=== PATIENT | female | born 1990 | race Caucasian/White ===

== ENCOUNTER 2021-11-01 19:46 | Emergency (ER) | payer OTHER, MEDICAID, SELFPAY ==
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
[2021-11-01 21:11] VITALS: BP 127/67; PULSE 87; RESP 18; TEMP 37.1; O2SAT 98; BMI 25.7
[2021-11-01 22:00] VITALS: BP 128/69; PULSE 82; RESP 18; TEMP 37.2; O2SAT 98
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
[2021-11-02 00:08] LABS: UPreg QC Valid YES; Urine Pregnancy NEGATIVE (NEGATIVE)
[2021-11-02 00:15] VITALS: BP 128/81; PULSE 79; RESP 14; TEMP 37.2; O2SAT 97
[2021-11-02] MEDS: Diphth,Pertus(ACell),Tet Adult 0.5 ML SYRINGE IM (00:47)
[2021-11-02] MEDS: Ketorolac Tromethamine 30 MG/ML VIAL 15 MG IM (00:47)
[2021-11-02] MEDS: Acetaminophen 325 MG TABLET 975 MG PO (00:47)
== END 2021-11-02 02:03 | disposition home or self-care (01) ==
PROVIDERS: Emergency Provider Student in an Organized Health Care Education/Training Program
DX: S16.1XXA Strain of muscle, fascia and tendon at neck level, initial encounter (principal); M62.830 Muscle spasm of back; S20.319A Abrasion of unspecified front wall of thorax, initial encounter; R07.89 Other chest pain; V43.52XA Car driver injured in collision with other type car in traffic accident, initial encounter; Y93.9 Activity, unspecified; Y92.410 Unspecified street and highway as the place of occurrence of the external cause; Y99.9 Unspecified external cause status
CPT/HCPCS: 70450; 70486; 71250; 72125; 81025; 90471; 90715; 96372; 99284; 99285; J1885

== ENCOUNTER 2024-02-15 09:53 | Emergency (ER) | payer MEDICAID, SELFPAY ==
--- NOTE | 2024-02-15 09:55 | ECG_ITS ---
Test Reason : cp Blood Pressure : / mmHG Vent. Rate : 105 BPM Atrial Rate : 105 BPM P-R Int : 114 ms QRS Dur : 092 ms QT Int : 338 ms P-R-T Axes : 072 039 037 degrees QTc Int : 446 ms Sinus tachycardia Otherwise normal ECG When compared with ECG of 17-AUG-2009 22:43, No significant change was found Referred By: Generic ED Physician Electronically Signed By:Home Rizvi
[2024-02-15 10:21] VITALS: BP 126/80; PULSE 105; RESP 17; TEMP 36.6; O2SAT 98; BMI 27.8
--- NOTE | 2024-02-15 10:50 | ED.ASTHMA ---
HPI - Asthma General Chief Complaint: Asthma Stated Complaint: asthma chest tightness Time Seen by Provider: 02/15/24 10:27 Source: patient Mode of arrival: ambulatory Limitations: no limitations History of Present Illness HPI Narrative: Patient is a 33-year-old female with history of asthma presenting to the emergency department with complaint of chest tightness and wheezing since Thursday. Also reports that she has had nasal congestion and cough also since Thursday. Denies fevers. Denies chest pain. Has been using her inhaler and nebulizer at home with little relief. complaint: wheezing Onset (ago): day(s) Severity: moderate Context: recent URI Associated symptoms: dry cough Treatments Prior to Arrival: inhaled bronchodilator Related Data Previous Rx's Medication Instructions Recorded benzonatate 100 mg capsule 100 mg PO TID PRN cough #20 caps 02/15/24 prednisone 20 mg tablet 40 mg (2 x 20 mg) PO DAILY #10 tabs 02/15/24 Allergies Allergy/AdvReac Type Severity Reaction Status Date / Time No Known Allergies Allergy Unverified 08/09/20 16:02 Review of Systems Review of Systems: As per HPI. Yes all other systems are reviewed and are negative Constitutional: Constitutional: Reports as per HPI [facility] Past Medical History Medical History Asthma Social History Social History Alcohol intake: unknown Patient Tobacco Use Status: Tobacco use Unknown Advance Directives: No Advance Directives Information Provided: No Physical Exam Vital Signs: Vital Signs: Last Vital Signs Temp 97.8 F 02/15/24 10:21 Pulse 104 H 02/15/24 11:10 Resp 22 H 02/15/24 11:10 BP 126/80 02/15/24 10:21 Pulse Ox 98 02/15/24 10:21 O2 Del Method Room Air 02/15/24 10:21 BMI result Body Mass Index 27.8 Vital signs have been reviewed and appear to be correct. Blood pressure normal. Heart rate l. Respiratory rate normal. Temperature normal. Oxygen saturation normal. Const: General: cooperative, healthy appearing and no acute distress Orientation/consciousness: oriented to person, oriented to place, oriented to time and patient oriented x3 Limitations: no limitations HEENT: Head: Yes normocephalic and Yes atraumatic Ears: external ears normal General nose exam: Normal external nose present Face and sinus: Yes face symmetric Mouth: oropharynx normal and moist mucous membranes Throat: Yes uvula midline Eyes: Pupils: Equal, round and reactive pupils present Neck: Neck: Yes normal visual inspection and Yes supple Resp: Effort & Inspection: normal respiratory effort, able to speak in complete sentences, no respiratory distress, no retractions, no tripod positioning and no use of accessory muscles Auscultation: wheezes expiratory wheezes, inspiratory wheezes and throughout Cardio: Rate: regular rate Rhythm: regular rhythm Heart sounds: S1 normal heart sound present and S2 normal heart sound present GI: Palpation (GI): Soft to palpation and nontender Auscultation: normoactive bowel sounds : General: Yes no CVA tenderness Back/Spine/Pelvis: Back: no CVA tenderness Skin: General skin exam: elasticity normal and turgor normal Neuro: General: oriented to person, oriented to place, oriented to time, patient oriented x3, moves all extremities, no focal motor deficits and CN's II-XI intact bilaterally Cranial nerves: Yes Equal, round and reactive pupils present Cognition (Neuro): normal cognition Extrem: General: Yes full ROM, Yes no pedal edema and Yes no calf tenderness Psych: Mental Status: mental status grossly normal Affect: normal affect Thought process: Normal thought process present Medications Administered Discontinued Medications Generic Name Dose Route Start Last Admin Trade Name Freq PRN Reason Stop Dose Admin Albuterol Sulfate 8 puff 02/15/24 11:01 02/15/24 11:04 Albuterol Sulfate 90 Mcg 8 Gm Inhaler INHALE 02/15/24 11:02 8 puff ONCE ONE Administration Medical Decision Making Medical Decision Making [facility] Narrative: Patient is a 33-year-old female with history of asthma presenting to the emergency department with complaint of chest tightness and wheezing since Thursday. On exam patient is awake, A+Ox3, slightly tachycardic, VS otherwise WNL, afebrile, normal neurological exam without focal deficits, physical exam findings as above. Given reported symptoms and physical exam findings, initial differential includes asthma exacerbation, viral illness, covid, flu, rsv. Viral swabs negative. EKG shows sinus tachycardia. Symptoms improved with breathing treatment given in the emergency department. Feel patient is stable for discharge home with course of prednisone and benzonatate. Instructed patient to follow-up with primary care provider. Return precautions discussed at bedside. Patient verbalized understanding of and agreement with plan. Differential Diagnosis Differential Diagnoses: The differential diagnosis associated with the presentation includes As per [facility]. Admission/Observation Consideration of admission/observation: Escalation of care including admission/observation considered Patient would have been admitted to the hospital had their work up had any findings where hospital admission was appropriate and their clinical presentation warranted hospital admission. Lab Data [facility] Lab Attestation statement: I reviewed the patient's lab results. As per [facility]. Labs: Lab Results 02/15/24 Range/Units 10:54 Influenza Type A (PCR) NEGATIVE (Negative) Influenza Type B (PCR) NEGATIVE (Negative) RSV RNA Qual (PCR) NEGATIVE (Negative) SARS-CoV-2 RNA (RT-PCR) NEGATIVE (Negative) External Record Review External record reviewed: Inpatient record, Office record and Outpatient record Prescription Management I considered prescription management with: Other Chronic Conditions Patient?s care impacted by: Other (asthma) Discharge Plan Discharge Clinical Impression: Asthma with acute exacerbation, Upper respiratory virus Patient Disposition: Home, Self-Care Instructions: Asthma (DC), Viral Syndrome (ED) Additional Instructions: You were evaluated in the emergency department today for wheezing and shortness of breath. Your symptoms are likely due to an asthma exacerbation caused by your recent viral respiratory infection. You were given a breathing treatment in the emergency department with improvement. You are being prescribed a short course of steroids. You are also being prescribed cough medication. Please continue to use your inhaler and nebulizer as prescribed. Return to the emergency department if you develop worsening shortness of breath or difficulty breathing, chest pain, fever any other concerning symptoms. Follow-up with your primary care provider this week. Prescriptions: New prednisone 20 mg tablet 40 mg PO DAILY Qty: 10 0RF benzonatate 100 mg capsule 100 mg PO TID PRN (Reason: cough) Qty: 20 0RF
[2024-02-15] MEDS: Albuterol Sulfate 90 MCG 8 GM INHALER 8 PUFF INHALE (11:04)
[2024-02-15 11:10] VITALS: PULSE 104; RESP 22; O2SAT 95
[2024-02-15 11:52] LABS: Influenza A PCR NEGATIVE (Negative); Influenza B PCR NEGATIVE (Negative); Resp Syncy Virus RNA Qual PCR NEGATIVE (Negative); SARS COV2 PCR INHOUSE NEGATIVE (Negative)
[2024-02-15 14:32] VITALS: BP 111/82; PULSE 93; RESP 20; TEMP 36.9; O2SAT 96
== END 2024-02-15 14:33 | disposition home or self-care (01) ==
PROVIDERS: Registered Nurse Emergency; Emergency Provider Emergency Medicine
DX: J45.901 Unspecified asthma with (acute) exacerbation (principal); J06.9 Acute upper respiratory infection, unspecified; Z11.52 Encounter for screening for COVID-19; Z20.828 Contact with and (suspected) exposure to other viral communicable diseases
CPT/HCPCS: 0241U; 93005; 94640; 94664; 99284

== ENCOUNTER → 2024-02-15 09:55 | Outpatient (BNV) | payer MEDICAID, SELFPAY | PROVIDERS: Emergency Provider Emergency Medicine; Visit Provider Internal Medicine Cardiovascular Disease | DX: R07.9 Chest pain, unspecified (principal) | CPT/HCPCS: 93010 ==

== ENCOUNTER 2024-07-31 20:35 | Emergency (ER) | payer MEDICAID, SELFPAY ==
[2024-07-31 20:38] VITALS: BP 122/47; PULSE 97; RESP 14; TEMP 36.3; O2SAT 97; BMI 29.1
--- NOTE | 2024-07-31 20:39 | ED.GENADULT ---
HPI - General Adult General Chief complaint: Eye Problems Stated complaint: swollen itchy eyes Time Seen by Provider: 07/31/24 21:23 Source: patient Mode of arrival: ambulatory Limitations: no limitations History of Present Illness ED Provider: Dr. Sonia Jay HPI narrative: patient comes to the emergency room complaining of swelling of both eyes. Patient states that it started with 1 eye in the morning, patient took medication for seasonal allergies, instead hoping to decrease the swelling and the itching is, it increased and spread to the other eye. Patient complaining of full body itchiness. Patient denies chest pain or shortness of breath. No oropharyngeal involvement. Related Data Previous Rx's ?Medication ?Instructions ?Recorded benzonatate 100 mg capsule 100 mg PO TID PRN cough #20 caps 02/15/24 prednisone 20 mg tablet 40 mg (2 x 20 mg) PO DAILY #10 tabs 02/15/24 hydroxyzine HCl 25 mg tablet 25 mg PO TID PRN itching #14 tabs 08/01/24 prednisone 50 mg tablet 50 mg PO DAILY #3 tabs 08/01/24 Allergies Allergy/AdvReac Type Severity Reaction Status Date / Time No Known Allergies Allergy Verified 07/31/24 20:39 Review of Systems Review of Systems: Constitutional : No Weight loss, No Fever, No Chills, No Night Sweats, No Fatigue, No Malaise ENT/Mouth : No Hearing loss, No Ear Pain, No Nasal Congestion, No Sinus Pain, No Hoarseness, No sore throat, No Rhinorrhea, No Swallowing Difficulty Eyes: No Eye Pain, No Swelling, No Redness, No Foreign Body, No Discharge, No Vision Changes Cardiovascular : No Chest Pain, No SOB, No Dyspnea on Exertion, No Orthopnea, No Edema, No Palpitations Respiratory : No Cough, No Sputum, No Wheezing, No Smoke Exposure, No Dyspnea Gastrointestinal : No Nausea, No Vomiting, No Diarrhea, No Constipation, No abdominal Pain, No Hematochezia, No Melena Genitourinary : no irregular bleeding, No Dysuria, No Urinary Frequency, No Hematuria, No Urinary Incontinence, No Urgency, No Flank Pain, No Urinary Flow Changes, No Hesitancy Musculoskeletal : No joint pain, No Myalgias, No Joint Swelling Skin : Complaining of facial hives Neuro : No Weakness, No Numbness, No Paresthesias, No Loss of Consciousness, No Dizziness, No Headache Psych : No Anxiety/Panic, No Depression, No SI/HI/AH/VH, No Social Issues, Heme/Lymph: No Bruising, No Bleeding,No Lymphadenopathy Endocrine : No Polyuria, No Polydipsia, No Temperature Intolerance [facility] Past Medical History Medical History Asthma Social History Social History Alcohol intake: unknown Patient Tobacco Use Status: Tobacco use Unknown Advance Directives: No Advance Directives Information Provided: No Do you have a plan to hurt others: No Plan Physical Exam ED Vital Signs: Vital Signs - 24 hr 07/31/24 20:38 07/31/24 22:09 Temperature 97.3 F 97.1 F Pulse Rate 97 85 Respiratory Rate 14 16 Blood Pressure 122/47 L 122/74 Pulse Oximetry 97 98 Oxygen Delivery Method Room Air Room Air BMI result Body Mass Index 29.1 Const Other: Appearance: Alert. Oriented X3. No acute distress. Eyes: Pupils equal, round and reactive to light. ENT: Pharynx normal. Neck: Normal inspection. Neck supple. No lymph nodes noted. No crepitus CVS: Normal heart rate and rhythm. Pulses normal. Normal S1 and S2 Respiratory: No respiratory distress. Breath sounds normal. No Wheezing. No rales Abdomen: Soft and nontender. No rigidity. No distention. Skin: head in the face Extremities: No lower extremity edema. No Lacerations. No Rash Neuro: Oriented X 3. No motor deficit. No sensory deficit. Moving all extremities. No slurred speech. CN 2 through 12 grossly intact Psych: calm, cooperative, normal affect Course Course Course Narrative: RME performed by Nikcie Garcia PA-C. Patient is a 33 year old assigned female at presenting to the emergency department with bilateral itching and swollen eyes. Patient states this started this morning and she is concerned that is an allergic reaction to something. Detailed physical exam and review of systems are deferred to the warehouse administrator. Labs ordered. Patient placed back in the waiting room pending room availability and results. Medications Administered Generic Name Dose Route Start Last Admin Trade Name Freq PRN Reason Stop Dose Admin Sodium Chloride 1,000 mls @ 999 mls/hr 07/31/24 23:19 07/31/24 23:29 Ns IVCONT 08/01/24 00:19 999 mls/hr .Q1H1M ONE Administration Discontinued Medications Generic Name Dose Route Start Last Admin Trade Name Gareth PRTriston Reason Stop Dose Admin Diphenhydramine HCl 50 mg 07/31/24 21:41 07/31/24 21:54 Diphenhydramine Hcl 50 Mg/Ml Vial IVPUSH 07/31/24 21:42 50 mg ONCE ONE Administration Famotidine 20 mg 07/31/24 21:41 07/31/24 21:54 Famotidine/Pf 20 Mg/2 Ml Vial IVPUSH 07/31/24 21:42 20 mg ONCE ONE Administration Famotidine 20 mg 07/31/24 23:19 07/31/24 23:30 Famotidine/Pf 20 Mg/2 Ml Vial IVPUSH 07/31/24 23:20 20 mg ONCE ONE Administration Hydroxyzine HCl 50 mg 07/31/24 23:20 07/31/24 23:30 Hydroxyzine Hcl 50 Mg Tablet PO 07/31/24 23:21 50 mg ONCE ONE Administration Methylprednisolone Sodium Succinate 125 mg 07/31/24 21:41 07/31/24 21:54 Methylprednisolone Sod Succ 125 Mg/2 Ml Vial IVPUSH 07/31/24 21:42 125 mg ONCE ONE Administration Methylprednisolone Sodium Succinate 125 mg 07/31/24 23:19 07/31/24 23:30 Methylprednisolone Sod Succ 125 Mg/2 Ml Vial IVPUSH 07/31/24 23:20 125 mg ONCE ONE Administration Medical Decision Making Medical Decision Making [facility] Narrative: - patient was given IV Solu-Medrol, Pepcid and Benadryl. Patient states that the 1st round of treatment did not work, a 2nd dose of Solu-Medrol and Pepcid was given to the patient. Also given p.o. hydroxyzine. - After this dose of medications, patient states that she feels much better. She still has a bit of swelling under the eyes, no oropharyngeal edema, no wheezing, no hives anywhere else in itching this has resolved Differential Diagnosis Differential Diagnoses: The differential diagnosis associated with the presentation includes ( allergic reaction versus eczema versus seasonal allergies) Admission/Observation Consideration of admission/observation: Escalation of care including admission/observation considered ( given patient's duration of symptoms and response to treatment, observation was considered) Lab Data MDM Lab Attestation statement: I reviewed the patient's lab results. 07/31/24 20:47 07/31/24 20:47 Labs: Lab Results 07/31/24 Range/Units 20:47 WBC 9.6 (4.8-10.8) X10*3/uL RBC 4.25 (4.20-5.50) X10*6/uL Hgb 12.1 (12.0-16.0) g/dl Hct 36.8 L (37.0-47.0) % MCV 86.6 (80.0-98.0) fL MCH 28.5 (27.0-33.0) pg MCHC 32.9 (31.0-35.0) g/dl RDW 16.3 H (11.0-16.0) % Plt Count 296 (160-400) X10*3/uL MPV 10.6 (9.4-12.3) fL Immature Gran % (Auto) 0.4 (0.0-0.4) % Neut % (Auto) 54.6 (45-73) % Lymph % (Auto) 29.9 (20-40) % [place] % (Auto) 7.0 (2-11) % Eos % (Auto) 7.2 H (0-4) % Baso % (Auto) 0.9 (0-2) % Lymph # (Auto) 2.9 (1.2-4.9) X10*3/uL [place] # (Auto) 0.7 (0.1-1.2) X10*3/uL Eos # (Auto) 0.7 H (0.0-0.4) X10*3/uL Baso # (Auto) 0.1 (0.0-0.2) X10*3/uL Abs Immat Gran (auto) 0.04 H (0.00-0.03) X10*3/uL Absolute Neuts (auto) 5.3 (2.0-8.3) x10*3/uL Absolute Nucleated RBC 0.000 (0.0-0.012) X10*3/uL Nucleated RBC % (auto) 0.0 (0.0-0.2) /100WBC ESR 5 (0-20) MM/HR Sodium 142 (135-145) mmol/L Potassium 3.9 (3.3-5.1) mmol/L Chloride 108 (96-108) mmol/L Carbon Dioxide 26 (22-29) mmol/L Anion Gap 12 (12-20) BUN 10 (9-16) mg/dL Creatinine 0.73 (0.5-1.4) mg/dL Estim Creat Clear Calc 105.9 Estimated GFR > 60 Random Glucose 95 (60-115) mg/dL Calcium 8.8 (8.4-10.2) mg/dL Magnesium 2.0 (1.6-2.6) mg/dL Total Bilirubin 0.2 (0.0-1.0) mg/dL AST 15 (5-31) U/L ALT 17 (0-31) U/L Alkaline Phosphatase 64 (39-117) U/L C-Reactive Protein 0.28 (< or = 0.50) mg/dL Total Protein 6.4 L (6.5-8.0) g/dL Albumin 3.7 (3.5-5.0) g/dL Critical Care Time Critical Care Time Critical Care Time: Yes Total Critical Care Time: 35 Attestation: I have personally provided critical care time. Time includes review of lab data, radiology results, discussion with consultants, and monitoring for potential decompensation. Intervention performed as documented. Discharge Plan Discharge Clinical Impression: Allergic reaction Patient Disposition: Home, Self-Care Instructions: General Allergic Reaction (ED), Allergy Testing (ED) Additional Instructions: Please follow-up with your primary care physician tomorrow. If you have any worsening or new symptoms, please return to the emergency room or call 911 Prescriptions: New prednisone 50 mg tablet 50 mg PO DAILY Qty: 3 0RF hydroxyzine HCl 25 mg tablet 25 mg PO TID PRN (Reason: itching) Qty: 14 0RF No Action prednisone 20 mg tablet 40 mg PO DAILY Qty: 10 0RF benzonatate 100 mg capsule 100 mg PO TID PRN (Reason: cough) Qty: 20 0RF Print Language: Czech
[2024-07-31 20:52] LABS: MANUAL DIFF FLAG NO
[2024-07-31 20:55] LABS: Basophils Absolute Auto 0.1 X10*3/uL (0.0-0.2); Basophils Percent Auto 0.9 % (0-2); Eosinophils Absolute Auto 0.7 X10*3/uL (0.0-0.4); Eosinophils Percent Auto 7.2 % (0-4); Hematocrit 36.8 % (37.0-47.0); Hemoglobin 12.1 g/dl (12.0-16.0); Imm Gran Abs Auto 0.04 X10*3/uL (0.00-0.03); Imm Gran Pct Auto 0.4 % (0.0-0.4); Lymphocytes Absolute Auto 2.9 X10*3/uL (1.2-4.9); Lymphocytes Percent Auto 29.9 % (20-40); Mean Corpuscular HGB Conc 32.9 g/dl (31.0-35.0); Mean Corpuscular Hemoglobin 28.5 pg (27.0-33.0); Mean Corpuscular Volume 86.6 fL (80.0-98.0); Mean Platelet Volume 10.6 fL (9.4-12.3); Monocytes Absolute Auto 0.7 X10*3/uL (0.1-1.2); Neutrophils Absolute Auto 5.3 x10*3/uL (2.0-8.3); Neutrophils Percent Auto 54.6 % (45-73); Platelet Count 296 X10*3/uL (160-400); Red Blood Count 4.25 X10*6/uL (4.20-5.50); Red Cell Distribution Width 16.3 % (11.0-16.0); White Blood Count 9.6 X10*3/uL (4.8-10.8)
[2024-07-31 21:09] LABS: Alanine Aminotransferase 17 U/L (0-31); Albumin Level 3.7 g/dL (3.5-5.0); Alkaline Phosphatase 64 U/L (39-117); Anion Gap 12 (12-20); Aspartate Amino Transferase 15 U/L (5-31); Bilirubin Total 0.2 mg/dL (0.0-1.0); Blood Urea Nitrogen 10 mg/dL (9-16); C Reactive Protein 0.28 mg/dL (< or = 0.50); Calcium 8.8 mg/dL (8.4-10.2); Carbon Dioxide 26 mmol/L (22-29); Chloride 108 mmol/L (96-108); Creatinine Clr Calc Pharmacy 105.9; Estimated Glomerular Filt Rate > 60; Glucose Random 95 mg/dL (60-115); Potassium 3.9 mmol/L (3.3-5.1); Sodium 142 mmol/L (135-145); Total Protein 6.4 g/dL (6.5-8.0)
[2024-07-31 21:36] LABS: Erythrocyte Sedimentation Rate 5 MM/HR (0-20)
[2024-07-31] MEDS: diphenhydrAMINE HCL 50 MG/ML VIAL IVPUSH (21:54)
[2024-07-31] MEDS: methylPREDNISolone Sod Succ 125 MG/2 ML VIAL IVPUSH ×2 (21:54→23:30)
[2024-07-31] MEDS: Famotidine/PF 20 MG/2 ML VIAL IVPUSH ×2 (21:54→23:30)
[2024-07-31 22:09] VITALS: BP 122/74; PULSE 85; RESP 16; TEMP 36.2; O2SAT 98
[2024-07-31] MEDS: 0.9 % Sodium Chloride 1,000 ML 999 ML IVCONT (23:29)
[2024-07-31] MEDS: hydrOXYzine HCL 50 MG TABLET PO (23:30)
[2024-08-01 01:12] VITALS: BP 112/68; PULSE 72; RESP 16; TEMP 36.7; O2SAT 98
== END 2024-08-01 01:15 | disposition home or self-care (01) ==
PROVIDERS: Physician Assistant Medical; Emergency Provider Emergency Medicine
DX: L29.9 Pruritus, unspecified (principal); H01.8 Other specified inflammations of eyelid; R06.02 Shortness of breath; Z79.899 Other long term (current) drug therapy
CPT/HCPCS: 36415; 80053; 83735; 85025; 85652; 86140; 96361; 96374; 96375; 96376; 99284; J1200; J2919

== ENCOUNTER 2025-01-22 17:00 | Emergency (ER) | payer MEDICAID, SELFPAY ==
--- NOTE | ~2025-01-22 | XR_ITS ---
CLINICAL HISTORY: Chest pain Single view of the chest. COMPARISON: None FINDINGS: Normal heart and mediastinal contours. No consolidation. No pleural effusion or pneumothorax. No fracture identified. IMPRESSION: 1. No acute cardiopulmonary abnormality. This document has been electronically signed by: Christopher Gomez MD on 01/22/2025 18:39:07
--- NOTE | 2025-01-22 17:01 | ECG_ITS ---
Test Reason : CHEST PAIN Blood Pressure : */* mmHG Vent. Rate : 92 BPM Atrial Rate : 92 BPM P-R Int : 112 ms QRS Dur : 98 ms QT Int : 356 ms P-R-T Axes : 57 34 51 degrees QTcB Int : 440 ms Normal sinus rhythm Normal ECG When compared with ECG of 15-Feb-2024 10:02, No significant change was found Referred By: Generic ED Physician Electronically Signed By: PAIGE BHATT MD
[2025-01-22 17:08] VITALS: BP 150/89; PULSE 93; RESP 16; TEMP 36.7; O2SAT 98; BMI 28.2
--- NOTE | 2025-01-22 17:12 | ED_ITS ---
HPI - General Adult General Chief complaint: Chest Pain Stated complaint: chest pain/sob/left arm feels numb Time Seen by Provider: 01/22/25 18:40 Source: patient Mode of arrival: ambulatory Limitations: no limitations History of Present Illness ED Provider: Pollo Gutierrez HPI narrative: 34 yold female with pmh of asthma presents to the ED for SOB, wheezing, and chest pain since last night with coughing. patient states under stress because daughter tried to comittt suicide or in crisis. Related Data Previous Rx's ?Medication ?Instructions ?Recorded benzonatate 100 mg capsule 100 mg PO TID PRN cough #20 caps 02/15/24 prednisone 20 mg tablet 40 mg (2 x 20 mg) PO DAILY #10 tabs 02/15/24 hydroxyzine HCl 25 mg tablet 25 mg PO TID PRN itching #14 tabs 08/01/24 prednisone 50 mg tablet 50 mg PO DAILY #3 tabs 08/01/24 oseltamivir 75 mg capsule (Tamiflu) 75 mg PO BID 5 days #10 caps 01/22/25 prednisone 20 mg tablet 40 mg (2 x 20 mg) PO DAILY 5 days 01/22/25 #10 tabs Allergies Allergy/AdvReac Type Severity Reaction Status Date / Time No Known Allergies Allergy Verified 01/22/25 17:12 Review of Systems 2 Review of Systems: Chest pain, coughing, SOB, wheezing Yes all other systems are reviewed and are negative [facility] Past Medical History Medical History Asthma Social History Social History Alcohol intake: unknown Patient Tobacco Use Status: Tobacco use Unknown Advance Directives: No Advance Directives Information Provided: No Physical Exam ED Vital Signs: Vital Signs - 24 hr 01/22/25 17:08 01/22/25 18:36 Temperature 98.1 F Pulse Rate 93 107 H Respiratory Rate 16 18 Blood Pressure 150/89 H Pulse Oximetry 98 Oxygen Delivery Method Room Air BMI result Body Mass Index 28.2 Const General: cooperative, healthy appearing, comfortable, no acute distress, well developed, alert, awake and Physically active Orientation/consciousness: patient oriented x3 HENMT Head: Yes normal to inspection, Yes No palpable skull fracture present, Yes normocephalic and Yes atraumatic Ears: hearing grossly normal bilaterally, external ears normal, TM's normal bilaterally, TM normal on the right, TM normal on the left, EAC's normal, mastoids normal and no periauricular adenopathy Throat: Yes posterior oropharynx normal, Yes tonsils normal and Yes uvula midline Eyes General: appearance normal, both eyes and all related structures Neck Neck: Yes normal visual inspection, Yes full ROM, Yes no lymphadenopathy, Yes no meningeal signs, Yes trachea midline, Yes supple, No anterior neck swelling and No tender Chest Chest palpation & inspection: normal inspection of the chest and normal palpation of entire chest wall Resp Effort & Inspection: normal respiratory effort and able to speak in complete sentences Auscultation: wheezes expiratory wheezes Cardio Jugular venous distension: no JVD Heart sounds: S1 normal heart sound present and S2 normal heart sound present GI Inspection: Yes normal to inspection Palpation (GI): Soft to palpation, not firm, nontender, no guarding and not rigid General: Yes no CVA tenderness Back/Spine/Pelvis Back: no CVA tenderness and No back tenderness Skin General skin exam: no rashes or lesions noted, elasticity normal and turgor normal Neuro General: patient oriented x3, gait normal, tone normal, moves all extremities, Normal light touch and pain sensation, no meningeal signs, no focal motor deficits, CN's II-XI intact bilaterally and normal sensation to monofilament Extrem General: Yes normal to inspection, Yes full ROM and Yes capillary refill normal Psych Appearance: grossly normal, well kempt and not disheveled Course Course Course Narrative: RME; 34 yold female presents to the ED left-sided chest pain with numbness/tingling of upper extremity for a couple of days. Patient states under lot of stress due to daughter recently trying to commit suicide in his in crisis. Patient states using a nebulizer with no relief. Patient denies any recent long travel recent surgery or control use. Positive for lung wheezing EKG labs chest x-ray ordered SARs. Medications Administered Discontinued Medications Generic Name Dose Route Start Last Admin Trade Name Freq PRN Reason Stop Dose Admin Albuterol Sulfate 2.5 mg/ 0 mg 01/22/25 18:36 01/22/25 18:39 Albuterol/Ipratropium 3 ml INHALE 01/22/25 18:37 5 dose ONCE ONE Administration Oseltamivir Phosphate 75 mg 01/22/25 19:06 01/22/25 19:45 Oseltamivir Phosphate 75 Mg Capsule PO 01/22/25 19:07 75 mg ONCE ONE Administration Prednisone 40 mg 01/22/25 19:06 01/22/25 19:46 Prednisone 20 Mg Tablet PO 01/22/25 19:07 40 mg ONCE ONE Administration Medical Decision Making Medical Decision Making [facility] Narrative: 34-year-old female presents to ED for chest pain coughing shortness of breath since last night with wheezing brain patient denies any leg swelling calf pain recent long travel recent surgery. Patient denies any estrogen use. Patient's troponin BNP negative ever having chest pain since yesterday. Patient is positive for flu. Patient gave me ED bronchodilator albuterol, prednisone and Tamiflu. Patient explained worrisome signs and informed to return to the ED immediately. Not susepcting AL, PE, CHF, myocarditits, pericarditits, pneumonia, or any other concerning symptoms. Differential Diagnosis Differential Diagnoses: The differential diagnosis associated with the presentation includes (Pneumonia, COVID, influenza, RSV) Lab Data [facility] Lab Attestation statement: I reviewed the patient's lab results. 01/22/25 17:18 01/22/25 17:18 Labs: Lab Results 01/22/25 Range/Units 17:18 WBC 5.1 (4.8-10.8) X10*3/uL RBC 4.60 (4.20-5.50) X10*6/uL Hgb 12.9 (12.0-16.0) g/dl Hct 39.3 (37.0-47.0) % MCV 85.4 (80.0-98.0) fL MCH 28.0 (27.0-33.0) pg MCHC 32.8 (31.0-35.0) g/dl RDW 13.7 (11.0-16.0) % Plt Count 366 (160-400) X10*3/uL MPV 10.0 (9.4-12.3) fL Immature Gran % (Auto) 0.8 H (0.0-0.4) % Neut % (Auto) 53.6 (45-73) % Lymph % (Auto) 22.8 (20-40) % [place] % (Auto) 15.0 H (2-11) % Eos % (Auto) 6.4 H (0-4) % Baso % (Auto) 1.4 (0-2) % Lymph # (Auto) 1.2 (1.2-4.9) X10*3/uL [place] # (Auto) 0.8 (0.1-1.2) X10*3/uL Eos # (Auto) 0.3 (0.0-0.4) X10*3/uL Baso # (Auto) 0.1 (0.0-0.2) X10*3/uL Abs Immat Gran (auto) 0.04 H (0.00-0.03) X10*3/uL Absolute Neuts (auto) 2.8 (2.0-8.3) x10*3/uL Absolute Nucleated RBC 0.000 (0.0-0.012) X10*3/uL Nucleated RBC % (auto) 0.0 (0.0-0.2) /100WBC PT 12.6 H (10.9-12.4) SEC INR 1.1 (0.9-1.1) APTT 30.7 (26.0-36.8) SEC Sodium 140 (135-145) mmol/L Potassium 3.6 (3.3-5.1) mmol/L Chloride 107 (96-108) mmol/L Carbon Dioxide 23 (22-29) mmol/L Anion Gap 14 (12-20) BUN 8 L (9-16) mg/dL Creatinine 0.74 (0.5-1.4) mg/dL Estim Creat Clear Calc 102.0 Estimated GFR > 60 Random Glucose 96 (60-115) mg/dL Calcium 8.8 (8.4-10.2) mg/dL Total Bilirubin 0.2 (0.0-1.0) mg/dL AST 23 (5-31) U/L ALT 17 (0-31) U/L Alkaline Phosphatase 86 (39-117) U/L Troponin I High Sens < 2.7 (<3.5-17.0) ng/L B-Natriuretic Peptide 14 (<100) pg/mL Total Protein 7.6 (6.5-8.0) g/dL Albumin 3.9 (3.5-5.0) g/dL Beta HCG, Quant < 2 mIU/mL Influenza Type A (PCR) POSITIVE A (Negative) Influenza Type B (PCR) NEGATIVE (Negative) RSV RNA Qual (PCR) NEGATIVE (Negative) SARS-CoV-2 RNA (RT-PCR) NEGATIVE (Negative) Independent Interpretation I performed an independent interpretation of an: EKG (Normal sinus rythm) and Plain X-Ray Radiology Impression Discussion of test interpretation with radiology: I have reviewed the radiologist's reading. Independent Historian Clinical information obtained from an independent historian. History obtained from or confirmed by: Other (patient) Discharge Plan Discharge Clinical Impression: Influenza A Patient Disposition: Home, Self-Care Instructions: Influenza (ED) Additional Instructions: Recommend follow up with POC. return to the ED immeidatley for any chest pain, fever, chills, leg swelling, calf pain, weakness, dizziness, or any other concernin symptoms. Your labs, EkG, chest xray was reassuring. Continue using albuterol inhaler as needed. Prescriptions: New prednisone 20 mg tablet 40 mg PO DAILY 5 Days Qty: 10 0RF oseltamivir [Tamiflu] 75 mg capsule 75 mg PO BID 5 Days Qty: 10 0RF No Action prednisone 20 mg tablet 40 mg PO DAILY Qty: 10 0RF benzonatate 100 mg capsule 100 mg PO TID PRN (Reason: cough) Qty: 20 0RF prednisone 50 mg tablet 50 mg PO DAILY Qty: 3 0RF hydroxyzine HCl 25 mg tablet 25 mg PO TID PRN (Reason: itching) Qty: 14 0RF Stand Alone Forms: Work/School Release Interventions: ED Discharge Assessment Last Done: 01/22/25 19:47 Discharge Date/Time: 01/22/25 19:48 Print Language: [place]
[2025-01-22 17:26] LABS: MANUAL DIFF FLAG NO
[2025-01-22 17:28] LABS: Basophils Absolute Auto 0.1 X10*3/uL (0.0-0.2); Basophils Percent Auto 1.4 % (0-2); Eosinophils Absolute Auto 0.3 X10*3/uL (0.0-0.4); Eosinophils Percent Auto 6.4 % (0-4); Hematocrit 39.3 % (37.0-47.0); Hemoglobin 12.9 g/dl (12.0-16.0); Imm Gran Abs Auto 0.04 X10*3/uL (0.00-0.03); Imm Gran Pct Auto 0.8 % (0.0-0.4); Lymphocytes Absolute Auto 1.2 X10*3/uL (1.2-4.9); Lymphocytes Percent Auto 22.8 % (20-40); Mean Corpuscular HGB Conc 32.8 g/dl (31.0-35.0); Mean Corpuscular Volume 85.4 fL (80.0-98.0); Monocytes Absolute Auto 0.8 X10*3/uL (0.1-1.2); Neutrophils Absolute Auto 2.8 x10*3/uL (2.0-8.3); Neutrophils Percent Auto 53.6 % (45-73); Platelet Count 366 X10*3/uL (160-400); Red Cell Distribution Width 13.7 % (11.0-16.0); White Blood Count 5.1 X10*3/uL (4.8-10.8)
[2025-01-22 17:40] LABS: INTERNATIONAL NORM RATIO 1.1 (0.9-1.1); Prothrombin Time 12.6 SEC (10.9-12.4)
[2025-01-22 17:42] LABS: Partial Thromboplastin Time 30.7 SEC (26.0-36.8)
[2025-01-22 17:48] LABS: B Type Natriuretic Peptide 14 pg/mL (<100)
[2025-01-22 17:50] LABS: Alanine Aminotransferase 17 U/L (0-31); Albumin Level 3.9 g/dL (3.5-5.0); Alkaline Phosphatase 86 U/L (39-117); Anion Gap 14 (12-20); Aspartate Amino Transferase 23 U/L (5-31); Bilirubin Total 0.2 mg/dL (0.0-1.0); Blood Urea Nitrogen 8 mg/dL (9-16); Calcium 8.8 mg/dL (8.4-10.2); Carbon Dioxide 23 mmol/L (22-29); Chloride 107 mmol/L (96-108); Estimated Glomerular Filt Rate > 60; Glucose Random 96 mg/dL (60-115); HCG Quantitative < 2 mIU/mL; Potassium 3.6 mmol/L (3.3-5.1); Sodium 140 mmol/L (135-145); Total Protein 7.6 g/dL (6.5-8.0); Troponin-I High Sensitivity < 2.7 ng/L (<3.5-17.0)
[2025-01-22 18:07] LABS: Influenza A PCR POSITIVE (Negative); Influenza B PCR NEGATIVE (Negative); Resp Syncy Virus RNA Qual PCR NEGATIVE (Negative); SARS COV2 PCR INHOUSE NEGATIVE (Negative)
[2025-01-22 18:36] VITALS: PULSE 107; RESP 18; O2SAT 98
[2025-01-22] MEDS: Albuterol Sulfate 2.5 MG, Albuterol/Iprat 2.5/0.5MG 3 ML 3 ML INHALE (18:39)
[2025-01-22 19:24] VITALS: BP 148/88; PULSE 96; RESP 18; TEMP 36.8; O2SAT 98
[2025-01-22] MEDS: Oseltamivir Phosphate 75 MG CAPSULE PO (19:45)
[2025-01-22] MEDS: predniSONE 20 MG TABLET 40 MG PO (19:46)
[2025-01-22 19:47] VITALS: BP 148/88; PULSE 96; RESP 18; TEMP 36.8; O2SAT 98
== END 2025-01-22 19:48 | disposition home or self-care (01) ==
PROVIDERS: Physician Assistant; Emergency Provider Emergency Medicine
DX: J10.1 Influenza due to other identified influenza virus with other respiratory manifestations (principal); R07.89 Other chest pain; R06.02 Shortness of breath; M79.602 Pain in left arm; R05.9 Cough, unspecified; F43.9 Reaction to severe stress, unspecified; Z03.818 Encounter for observation for suspected exposure to other biological agents ruled out; Z79.899 Other long term (current) drug therapy
CPT/HCPCS: 0241U; 36415; 71045; 80053; 83880; 84484; 84702; 85025; 85610; 85730; 93005; 94640; 99284

== ENCOUNTER → 2025-01-22 17:01 | Outpatient (BNV) | payer MEDICAID, SELFPAY | PROVIDERS: Emergency Provider Emergency Medicine; Visit Provider Internal Medicine Cardiovascular Disease | DX: R07.9 Chest pain, unspecified (principal) | CPT/HCPCS: 93010 ==

== ENCOUNTER → 2025-01-22 17:11 | Outpatient (BNV) | payer MEDICAID, SELFPAY | PROVIDERS: Emergency Provider Emergency Medicine; Visit Provider Radiology Diagnostic Radiology | DX: R07.9 Chest pain, unspecified (principal) | CPT/HCPCS: 71045 ==

== ENCOUNTER 2025-02-26 01:03 | Emergency (ER) | payer MEDICAID, SELFPAY ==
[2025-02-26] VITALS (7 sets, daily range): BP systolic 115–161; BP diastolic 70–97; PULSE 93–143; RESP 13–24; TEMP 36.2–36.9; O2SAT 93–98; BMI 27.5
--- NOTE | ~2025-02-26 | XR_ITS ---
CLINICAL HISTORY: sob 1 view chest x-ray Comparison: CR - XR CHEST 1V - 01/22/25 17:49 EST Findings: The lungs are clear. Normal size heart. No acute fracture. IMPRESSION: 1. No acute findings. This document has been electronically signed by: Chuckie Travis MD, PHD on 02/26/2025 01:26:05
--- NOTE | 2025-02-26 01:08 | ECG_ITS ---
Test Reason : SOB Blood Pressure : */* mmHG Vent. Rate : 119 BPM Atrial Rate : 119 BPM P-R Int : 126 ms QRS Dur : 90 ms QT Int : 326 ms P-R-T Axes : 67 58 51 degrees QTcB Int : 458 ms Sinus tachycardia Nonspecific ST abnormality Abnormal ECG When compared with ECG of 22-Jan-2025 17:03, No significant change was found Referred By: Generic ED Physician Electronically Signed By: FÉLIX HASTINGS
[2025-02-26] MEDS: Albuterol Sulfate 2.5 MG, Albuterol/Iprat 2.5/0.5MG 3 ML 3 ML INHALE ×2 (01:30→03:56)
[2025-02-26 01:43] LABS: MANUAL DIFF FLAG NO
--- NOTE | 2025-02-26 01:43 | MHC.EDTECH ---
EKG delayed due to pt being in X-ray,and pt was have difficulty breathing,RN aware
[2025-02-26 01:45] LABS: Basophils Absolute Auto 0.1 X10*3/uL (0.0-0.2); Basophils Percent Auto 0.7 % (0-2); Eosinophils Absolute Auto 0.1 X10*3/uL (0.0-0.4); Eosinophils Percent Auto 1.1 % (0-4); Hematocrit 39.5 % (37.0-47.0); Hemoglobin 13.5 g/dl (12.0-16.0); Imm Gran Abs Auto 0.06 X10*3/uL (0.00-0.03); Imm Gran Pct Auto 0.6 % (0.0-0.4); Lymphocytes Percent Auto 10.2 % (20-40); Mean Corpuscular HGB Conc 34.2 g/dl (31.0-35.0); Mean Corpuscular Hemoglobin 28.5 pg (27.0-33.0); Mean Corpuscular Volume 83.5 fL (80.0-98.0); Mean Platelet Volume 10.4 fL (9.4-12.3); Monocytes Absolute Auto 0.7 X10*3/uL (0.1-1.2); Monocytes Percent Auto 7.3 % (2-11); Neutrophils Absolute Auto 7.8 x10*3/uL (2.0-8.3); Neutrophils Percent Auto 80.1 % (45-73); Platelet Count 346 X10*3/uL (160-400); Red Blood Count 4.73 X10*6/uL (4.20-5.50); Red Cell Distribution Width 15.8 % (11.0-16.0); White Blood Count 9.7 X10*3/uL (4.8-10.8)
--- NOTE | 2025-02-26 01:49 | ED.SOB ---
HPI - SOB/Dyspnea General Chief Complaint: Dyspnea Stated Complaint: Asthma attack Time Seen by Provider: 02/26/25 01:37 Source: patient Mode of arrival: ambulatory Limitations: no limitations History of Present Illness ED Provider: Dr. Sonia Jay HPI Narrative: Patient comes to the emergency room complaining of an asthma exacerbation. Patient states that the shortness of breath began around 17:00. Patient state that it she has been using her nebulizers and inhalers very frequent. Patient believes that she over did it and lost count. Patient states that she was just scared of having a full-blown asthma exacerbation since she has been intubated in the past. At this time, patient states that she is breathing much more comfortable. Related Data Previous Rx's ?Medication ?Instructions ?Recorded benzonatate 100 mg capsule 100 mg PO TID PRN cough #20 caps 02/15/24 prednisone 20 mg tablet 40 mg (2 x 20 mg) PO DAILY #10 tabs 02/15/24 hydroxyzine HCl 25 mg tablet 25 mg PO TID PRN itching #14 tabs 08/01/24 prednisone 50 mg tablet 50 mg PO DAILY #3 tabs 08/01/24 oseltamivir 75 mg capsule (Tamiflu) 75 mg PO BID 5 days #10 caps 01/22/25 prednisone 20 mg tablet 40 mg (2 x 20 mg) PO DAILY 5 days 01/22/25 #10 tabs albuterol sulfate 2.5 mg/3 mL 2.5 mg (3 mL) inhalation Q4-6H PRN 02/26/25 (0.083 %) solution for nebulization shortness of breath or wheezing #75 mL albuterol sulfate 90 mcg/actuation 2 puff inhalation Q4-6H PRN 02/26/25 aerosol inhaler shortness of breath or wheezing #8.5 grams prednisone 50 mg tablet 50 mg PO DAILY #4 tabs 02/26/25 Allergies Allergy/AdvReac Type Severity Reaction Status Date / Time No Known Allergies Allergy Verified 02/26/25 01:06 Review of Systems Review of Systems: Constitutional : No Weight loss, No Fever, No Chills, No Night Sweats, No Fatigue, No Malaise ENT/Mouth : No Hearing loss, No Ear Pain, No Nasal Congestion, No Sinus Pain, No Hoarseness, No sore throat, No Rhinorrhea, No Swallowing Difficulty Eyes: No Eye Pain, No Swelling, No Redness, No Foreign Body, No Discharge, No Vision Changes Cardiovascular : No Chest Pain, No SOB, No Dyspnea on Exertion, No Orthopnea, No Edema, No Palpitations Respiratory : Complaining of cough and wheezing No Smoke Exposure, complaining of Dyspnea Gastrointestinal : No Nausea, No Vomiting, No Diarrhea, No Constipation, No abdominal Pain, No Hematochezia, No Melena Genitourinary : no irregular bleeding, No Dysuria, No Urinary Frequency, No Hematuria, No Urinary Incontinence, No Urgency, No Flank Pain, No Urinary Flow Changes, No Hesitancy Musculoskeletal : No joint pain, No Myalgias, No Joint Swelling Skin : No Skin Lesions, No rash Neuro : No Weakness, No Numbness, No Paresthesias, No Loss of Consciousness, No Dizziness, No Headache Psych : No Anxiety/Panic, No Depression, No SI/HI/AH/VH, No Social Issues, Heme/Lymph: No Bruising, No Bleeding,No Lymphadenopathy Endocrine : No Polyuria, No Polydipsia, No Temperature Intolerance [facility] Past Medical History Medical History Asthma Social History Social History Alcohol intake: unknown Patient Tobacco Use Status: Tobacco use Unknown Smoked in Last 30 Days: No Use of substances other than those prescribed or required for medical reasons: Yes Substance Use Type: Marijuana Advance Directives: No Advance Directives Information Provided: Yes Do you have a plan to hurt others: No Plan Patient : No Physical Exam Vital Signs: Vital Signs: Last Vital Signs Temp 98.4 F 02/26/25 01:24 Pulse 93 02/26/25 04:01 Resp 18 02/26/25 04:01 BP 125/83 02/26/25 02:36 Pulse Ox 98 02/26/25 02:36 O2 Del Method Room Air 02/26/25 02:36 O2 Flow Rate 1 02/26/25 01:24 BMI result Body Mass Index 27.5 Const: Other: Appearance: Alert. Oriented X3. No acute distress. Eyes: Pupils equal, round and reactive to light. ENT: Pharynx normal. Neck: Normal inspection. Neck supple. No lymph nodes noted. No crepitus CVS: Normal heart rate and rhythm. Pulses normal. Normal S1 and S2 Respiratory: No respiratory distress. Very minimal occasion wheezing, good air movement,. No rales Abdomen: Soft and nontender. No rigidity. No distention. Skin: Skin warm and dry. Normal skin color. Normal skin turgor. Extremities: No lower extremity edema. No Lacerations. No Rash Neuro: Oriented X 3. No motor deficit. No sensory deficit. Moving all extremities. No slurred speech. CN 2 through 12 grossly intact Psych: calm, cooperative, normal affect Course Course Course Narrative: At this time, patient is barely wheezing, very good air movement, good oxygen saturation in the high 90s. No need for nebulization treatment at this time. Patient receiving Solu-Medrol and IV magnesium. All of patient's labs and imaging pending. Medications Administered Discontinued Medications Generic Name Dose Route Start Last Admin Trade Name Freq PRN Reason Stop Dose Admin Albuterol Sulfate 2.5 mg/ 0 mg 02/26/25 01:20 02/26/25 01:30 Albuterol/Ipratropium 3 ml INHALE 02/26/25 01:21 5 dose ONCE ONE Administration Albuterol Sulfate 2.5 mg/ 0 mg 02/26/25 03:54 02/26/25 03:56 Albuterol/Ipratropium 3 ml INHALE 02/26/25 03:55 5 dose ONCE ONE Administration Magnesium Sulfate 2 gm in 50 mls @ 25 mls/hr 02/26/25 01:49 02/26/25 04:53 Magnesium Sulfate/H2o IV 02/26/25 03:48 Infused ONCE ONE Infusion Methylprednisolone Sodium Succinate 125 mg 02/26/25 01:49 02/26/25 02:27 Methylprednisolone Sod Succ 125 Mg/2 Ml Vial IVPUSH 02/26/25 01:50 125 mg ONCE ONE Administration Medical Decision Making Medical Decision Making [facility] Narrative: My interpretation of labs: Normal hematology and chemistry, serology negative for influenza RSV and COVID Chest x-ray negative for any acute findings Ambulation trial 96%, patient states that she feels a bit short of breath and she was given a 2nd albuterol treatment. Patient states that she is running out of most of her medications including pump and liquid form albuterol for neb treatments After the 2nd treatment of albuterol, patient was ambulated around the emergency room, oxygen saturation steady between 94% and above. Patient states that she no longer feels wheezing or short of breath and feels ready to go home Differential Diagnosis Differential Diagnoses: The differential diagnosis associated with the presentation includes (Asthma exacerbation, viral URI) Admission/Observation Consideration of admission/observation: Escalation of care including admission/observation considered Lab Data MDM Lab Attestation statement: I reviewed the patient's lab results. 02/26/25 01:38 02/26/25 01:38 Labs: Lab Results 02/26/25 Range/Units 01:38 WBC 9.7 (4.8-10.8) X10*3/uL RBC 4.73 (4.20-5.50) X10*6/uL Hgb 13.5 (12.0-16.0) g/dl Hct 39.5 (37.0-47.0) % MCV 83.5 (80.0-98.0) fL MCH 28.5 (27.0-33.0) pg MCHC 34.2 (31.0-35.0) g/dl RDW 15.8 (11.0-16.0) % Plt Count 346 (160-400) X10*3/uL MPV 10.4 (9.4-12.3) fL Immature Gran % (Auto) 0.6 H (0.0-0.4) % Neut % (Auto) 80.1 H (45-73) % Lymph % (Auto) 10.2 L (20-40) % [place] % (Auto) 7.3 (2-11) % Eos % (Auto) 1.1 (0-4) % Baso % (Auto) 0.7 (0-2) % Lymph # (Auto) 1.0 L (1.2-4.9) X10*3/uL [place] # (Auto) 0.7 (0.1-1.2) X10*3/uL Eos # (Auto) 0.1 (0.0-0.4) X10*3/uL Baso # (Auto) 0.1 (0.0-0.2) X10*3/uL Abs Immat Gran (auto) 0.06 H (0.00-0.03) X10*3/uL Absolute Neuts (auto) 7.8 (2.0-8.3) x10*3/uL Absolute Nucleated RBC 0.000 (0.0-0.012) X10*3/uL Nucleated RBC % (auto) 0.0 (0.0-0.2) /100WBC Sodium 143 (135-145) mmol/L Potassium 3.3 (3.3-5.1) mmol/L Chloride 107 (96-108) mmol/L Carbon Dioxide 23 (22-29) mmol/L Anion Gap 16 (12-20) BUN 7 L (9-16) mg/dL Creatinine 0.72 (0.5-1.4) mg/dL Estim Creat Clear Calc 107.4 Estimated GFR > 60 Random Glucose 129 H (60-115) mg/dL Calcium 9.2 (8.4-10.2) mg/dL Troponin I High Sens < 2.7 (<3.5-17.0) ng/L Influenza Type A (PCR) NEGATIVE (Negative) Influenza Type B (PCR) NEGATIVE (Negative) RSV RNA Qual (PCR) NEGATIVE (Negative) SARS-CoV-2 RNA (RT-PCR) NEGATIVE (Negative) Independent Interpretation I performed an independent interpretation of an: Plain X-Ray Radiology Impression Discussion of test interpretation with radiology: I have reviewed the radiologist's reading. Radiologist Impression: The lungs are clear. Normal size heart. No acute fracture. IMPRESSION: 1. No acute findings. Critical Care Time Critical Care Time Critical Care Time: Yes Total Critical Care Time: 45 Attestation: I have personally provided critical care time. Time includes review of lab data, radiology results, discussion with consultants, and monitoring for potential decompensation. Intervention performed as documented. Discharge Plan Discharge Clinical Impression: Asthma with exacerbation Patient Disposition: Home, Self-Care Instructions: Asthma (ED) Additional Instructions: Please follow-up with your primary care physician tomorrow. If you have any worsening or new symptoms, please return to the emergency room or call 911 Prescriptions: New prednisone 50 mg tablet 50 mg PO DAILY Qty: 4 0RF albuterol sulfate 90 mcg/actuation HFA aerosol inhaler 2 puff inhalation Q4-6H PRN (Reason: shortness of breath or wheezing) Qty: 8.5 1RF albuterol sulfate 2.5 mg /3 mL (0.083 %) solution for nebulization 2.5 mg inhalation Q4-6H PRN (Reason: shortness of breath or wheezing) Qty: 75 0RF No Action prednisone 20 mg tablet 40 mg PO DAILY Qty: 10 0RF benzonatate 100 mg capsule 100 mg PO TID PRN (Reason: cough) Qty: 20 0RF prednisone 20 mg tablet 40 mg PO DAILY 5 Days Qty: 10 0RF oseltamivir [Tamiflu] 75 mg capsule 75 mg PO BID 5 Days Qty: 10 0RF prednisone 50 mg tablet 50 mg PO DAILY Qty: 3 0RF hydroxyzine HCl 25 mg tablet 25 mg PO TID PRN (Reason: itching) Qty: 14 0RF Stand Alone Forms: Work/School Release Print Language: Armenian
--- OUTSIDE RECORDS SUMMARY | 2025-02-26 01:58 | XMS_ITS | Clinical Summary ---
Author Organization [employer] Address [address] [place] [address] Care Team Providers Care Or Scrub Tech Name Role Phone Unavailable Primary Care Provider Unavailabl e Encounters Date Type Department Care Team Description 02/03/2025 Population Health Risk Score [facility] (C3) Department [address] [place] [address] Provider, Population Health Generic from Last 3 Months Social History Tobacco Use Types Packs/Day Years Used Date Smoking Tobacco: Never Assessed Comments Unknown Sex and Gender Information Value Date Recorded Sex Assigned at Female 09/24/2022 4:09 PM EDT Legal Sex Female 8:38 PM EDT Gender Identity Not on file Sexual Orientation Not on file Last Filed Vital Signs Vital Sign Reading Time Taken Comments Blood Pressure 134/62 10/02/2020 4:00 PM EST Pulse 100 10/02/2020 4:00 PM EST Temperature - - Respiratory Rate - - Oxygen Saturation 98% 10/02/2020 4:00 PM EST Inhaled Oxygen Concentration - - Weight 69.7 kg (153 lb 9.6 oz) 10/02/2020 4:00 P M EST Height 162.6 cm (5' 4 ) 10/02/2020 4:00 PM EST Body Mass Index 26.37 10/02/2020 4:00 PM EST Plan of Treatment Health Maintenance Due Date Last Done Comments Depression Screening 1990 HIV Screening 1990 SDOH Screening 1990 Alcohol/Substance Use Screening 2002 Tobacco Screening 2002 Family Planning (PISQ) 2005 Hepatitis C Screening 2008 DTaP/Tdap/Td Vaccines (1 - Tdap) 2009 Pap Smear 2011 Hepatitis B Vaccines (2 of 3 - 19+ 3-dose series) 07/15/2018 06/17/2018 Pneumococcal Vaccine: Pediat rics (0 to 5 Years) and At-Risk Patients (6 to 49) Years) (2 of 2 - PCV) 07/19/2019 07/19/2018 Cervical Cancer Screening 2020 HPV/Cotest 2020 COVID-19 Vaccine (1 - 2023-2 5 season) 2024 Influenza Vaccine (#1) 2024 09/21/2018 Zoster Vaccines (1 of 2) 2040 RSV Patients and Pa tients Aged 60 years or older (1 - 1-dose 75+ series) 2065 HIB Vaccines Aged Out No longer eligi ble based on patient's age to complete this topic HPV Vaccines Aged Out No longer eligi ble based on patient's age to complete this topic Hepatitis A Vaccines Aged Out No long er eligible based on patient's age to complete this topic IPV Vaccines Aged Out No longer eligi ble based on patient's age to complete this topic Meningococcal Vaccine Aged Out No larry jose alfredo eligible based on patient's age to complete this topic RSV under 20 months Aged Out No longe r eligible based on patient's age to complete this topic Rotavirus Vaccines Aged Out No longer eligible based on patient's age to complete this topic Insurance [facility] C[facility]
[2025-02-26 01:59] LABS: Anion Gap 16 (12-20); Blood Urea Nitrogen 7 mg/dL (9-16); Calcium 9.2 mg/dL (8.4-10.2); Carbon Dioxide 23 mmol/L (22-29); Chloride 107 mmol/L (96-108); Creatinine Clr Calc Pharmacy 107.4; Estimated Glomerular Filt Rate > 60; Glucose Random 129 mg/dL (60-115); Potassium 3.3 mmol/L (3.3-5.1); Sodium 143 mmol/L (135-145)
[2025-02-26 02:10] LABS: Troponin-I High Sensitivity < 2.7 ng/L (<3.5-17.0)
[2025-02-26 02:21] LABS: Influenza A PCR NEGATIVE (Negative); Influenza B PCR NEGATIVE (Negative); Resp Syncy Virus RNA Qual PCR NEGATIVE (Negative); SARS COV2 PCR INHOUSE NEGATIVE (Negative)
[2025-02-26] MEDS: methylPREDNISolone Sod Succ 125 MG/2 ML VIAL IVPUSH (02:27)
[2025-02-26] MEDS: Magnesium Sulfate/H2O 2 GM/50 ML PIGGYBACK IV (02:27)
--- NOTE | 2025-02-26 05:49 | PC.NURSE ---
ambu trial with pt, pt tolerated well O2 sat 94%-95% on room air
== END 2025-02-26 06:03 | disposition home or self-care (01) ==
PROVIDERS: Emergency Provider Emergency Medicine
DX: J45.901 Unspecified asthma with (acute) exacerbation (principal); R06.02 Shortness of breath; Z79.899 Other long term (current) drug therapy; Z03.818 Encounter for observation for suspected exposure to other biological agents ruled out
CPT/HCPCS: 0241U; 36415; 71045; 80048; 84484; 85025; 93005; 94640; 96365; 96366; 96375; 99284; 99285; J2919; J3475

== ENCOUNTER → 2025-02-26 01:08 | Outpatient (BNV) | payer MEDICAID, SELFPAY | PROVIDERS: Emergency Provider Emergency Medicine; Visit Provider General Practice | DX: R06.02 Shortness of breath (principal) | CPT/HCPCS: 71045 ==

== ENCOUNTER → 2025-02-26 01:08 | Outpatient (BNV) | payer MEDICAID, SELFPAY | PROVIDERS: Emergency Provider Emergency Medicine; Visit Provider Internal Medicine | DX: R00.0 Tachycardia, unspecified (principal) | CPT/HCPCS: 93010 ==